=== PATIENT | female | born 1985 | race Hispanic/Latino ===

== ENCOUNTER 2024-12-11 17:56 | Inpatient (IN) | payer OTHER, SELFPAY ==
[2024-12-11 18:34] VITALS: BMI 30.5
[2024-12-11] MEDS ORDERED: Ondansetron PF 4 MG/2 ML Vial IVP PRN (19:10)
[2024-12-11] MEDS ORDERED: hydrALAZINE 20 MG/ML VIAL SLOW IVP PRN (19:10)
[2024-12-11] MEDS ORDERED: Lidocaine 1% (PF) 30 ML VIAL SC PRN (19:10)
[2024-12-11] MEDS ORDERED: Acetaminophen 500 MG TAB PO PRN (19:12)
[2024-12-11] MEDS ORDERED: Ibuprofen 800 MG TAB PO PRN (19:12)
[2024-12-11] MEDS ORDERED: Tranexamic Acid 1,000 MG/10 ML VIAL IVP PRN (19:12)
[2024-12-11] MEDS ORDERED: Diphenoxylate HCl/Atropine Tablet PO PRN ×2 (19:12)
[2024-12-11] MEDS ORDERED: Methylergonovine 0.2 MG/ML VIAL IM PRN (19:12)
[2024-12-11] MEDS ORDERED: Carboprost 250 MCG/ML AMP IM PRN (19:12)
[2024-12-11] MEDS ORDERED: Penicillin G 2.5 MILL.units 2.5 MILL.UNITS in Premix 1 BAG IVPB SCH (19:15)
[2024-12-11] MEDS ORDERED: Oxytocin 30 units/NS 500 ML 500 ML IV SCH ×3 (19:15)
[2024-12-11] MEDS ORDERED: Penicillin G Potassium 5 MILL.UNITS in Sodium Chloride 0.9% 100 ML IVPB SCH (19:15)
[2024-12-11 19:31] LABS: Hematocrit 38.9 % (34.9-44.5); Hemoglobin 13.3 g/dL (12.0-15.5); Mean Corpuscular Hemoglobin 29.4 pg (27.0-33.0); Mean Corpuscular Volume 85.9 fL (81.6-98.3); Platelet Count 208 10x3/uL (150-450); Red Blood Cell (RBC) Count 4.53 10x6/uL (3.90-5.03); White Blood Cell (WBC) Count 8.67 10x3/uL (3.5-10.5)
[2024-12-11 20:19] LABS: Syphilis Antibody Index 0.06 S/CO (<1.00 Non-Reactive)
[2024-12-11 20:21] LABS: Hep B Surf Ag - L&D Non-Reactive S/CO (NonReactive)
== END 2024-12-11 20:50 | disposition home or self-care (01) | DRG 833 ==
LOC: CSHLD 17:56
PROVIDERS: ADMIT Obstetrics & Gynecology; ATTEND Obstetrics & Gynecology
DX: O16.3 Unspecified maternal hypertension, third trimester (principal); O99.283 Endocrine, nutritional and metabolic diseases complicating pregnancy, third trimester; O99.820 Streptococcus B carrier state complicating pregnancy; O24.410 Gestational diabetes mellitus in pregnancy, diet controlled; Z3A.38 38 weeks gestation of pregnancy; Z79.899 Other long term (current) drug therapy; Z79.82 Long term (current) use of aspirin; Z91.013 Allergy to seafood; E21.2 Other hyperparathyroidism
CPT/HCPCS: 85027; 86780; 86850; 86900; 86901; 87340

== ENCOUNTER 2024-12-13 11:47 | Inpatient (IN) | payer MEDICAID, OTHER, SELFPAY ==
[2024-12-13] MEDS ORDERED: Diphenoxylate HCl/Atropine Tablet PO PRN (12:24)
[2024-12-13] MEDS ORDERED: Famotidine/PF 20 mg/2ml Vial SLOW IVP PRN (12:24)
[2024-12-13] MEDS ORDERED: Carboprost 250 MCG/ML AMP IM PRN (12:24)
[2024-12-13] MEDS ORDERED: Ondansetron PF 4 MG/2 ML Vial IVP PRN ×3 (12:24→15:18)
[2024-12-13] MEDS ORDERED: Tranexamic Acid 1,000 MG/10 ML VIAL IVP PRN (12:24)
[2024-12-13] MEDS ORDERED: hydrALAZINE 20 MG/ML VIAL SLOW IVP PRN ×2 (12:24→17:14)
[2024-12-13] MEDS ORDERED: Bicitra 30 ML UDCUP PO PRN (12:24)
[2024-12-13] MEDS ORDERED: Methylergonovine 0.2 MG/ML VIAL IM PRN (12:24)
[2024-12-13] MEDS ORDERED: Oxytocin 30 units/NS 500 ML 500 ML IV SCH (12:30)
[2024-12-13 13:51] VITALS: BMI 30.5
[2024-12-13 14:01] LABS: Hematocrit 39.0 % (34.9-44.5); Hemoglobin 13.0 g/dL (12.0-15.5); Mean Corpuscular Hemoglobin 28.8 pg (27.0-33.0); Mean Corpuscular Volume 86.5 fL (81.6-98.3); Platelet Count 193 10x3/uL (150-450); Red Blood Cell (RBC) Count 4.51 10x6/uL (3.90-5.03); White Blood Cell (WBC) Count 10.31 10x3/uL (3.5-10.5)
[2024-12-13] MEDS ORDERED: Meperidine HCl/PF 25 MG (1 mL) VIAL SLOW IVP PRN (15:17)
[2024-12-13] MEDS ORDERED: Ketorolac Tromethamine 30 MG (1 mL) VIAL IVP PRN (15:18)
[2024-12-13] MEDS ORDERED: diphenhydrAMINE 50 MG/ML VIAL IVP PRN (15:18)
[2024-12-13] MEDS ORDERED: Communication Order-Pharmacy FS SCH (15:30)
[2024-12-13] MEDS ORDERED: Ketorolac Tromethamine 30 MG (1 mL) VIAL IVP SCH (15:30)
[2024-12-13] MEDS ORDERED: Acetaminophen 325 MG TAB PO PRN (17:14)
[2024-12-13] MEDS ORDERED: Bisacodyl 10 MG SUPP PR PRN (17:14)
[2024-12-13] MEDS ORDERED: diphenhydrAMINE 25 MG CAP PO PRN (17:14)
[2024-12-13] MEDS ORDERED: Lanolin Ointment 7 GM TUBE TOP PRN (17:14)
[2024-12-13] MEDS: Ketorolac Tromethamine 30 MG (1 mL) VIAL IVP SCH (17:54)
[2024-12-13] MEDS: Ondansetron PF 4 MG/2 ML Vial ONE (19:32)
[2024-12-13] MEDS: Oxytocin 10 UNITS/ML VIAL ONE ×2 (19:32→19:36)
[2024-12-13] MEDS: Hepatitis B Vaccine 10 MCG/0.5 ML SYR ONE (19:35)
[2024-12-13] MEDS: PHENYLEPHRINE-NS 100 MCG/ML 10 ML SYRINGE ONE (19:35)
[2024-12-13] MEDS: Erythromycin Base 0.5% Oint 1 GM TUBE ONE (19:35)
[2024-12-13] MEDS: Ferrous Sulfate 325 MG TAB PO SCH (23:26)
[2024-12-14 05:29] LABS: Hematocrit 31.0 % (34.9-44.5); Hemoglobin 10.5 g/dL (12.0-15.5); Mean Corpuscular Hemoglobin 29.6 pg (27.0-33.0); Mean Corpuscular Volume 87.3 fL (81.6-98.3); Platelet Count 157 10x3/uL (150-450); Red Blood Cell (RBC) Count 3.55 10x6/uL (3.90-5.03); White Blood Cell (WBC) Count 10.64 10x3/uL (3.5-10.5)
[2024-12-14] MEDS: Boostrix 0.5 ML (Tdap) VIAL (>/=7 yrs of age) IM ONE (05:48)
[2024-12-14] MEDS: HYDROcodone/Acetaminophen 5/325 mg Tablet PO PRN (13:12)
[2024-12-14] MEDS: Ibuprofen 800 MG TAB PO SCH ×2 (14:00→21:15)
[2024-12-15 08:54] VITALS: BP 111/64; TEMP 97.5
== END 2024-12-15 13:55 | disposition home or self-care (01) | DRG 788 ==
LOC: CSHLD 11:47 → CSHPP 18:05
PROVIDERS: ADMIT Obstetrics & Gynecology; ATTEND Emergency Medicine
PROC: 10D00Z1 Extraction of Products of Conception, Low, Open Approach (ICD-10-PCS; principal; 2024-12-13)
DX: O24.429 Gestational diabetes mellitus in childbirth, unspecified control (principal); Z3A.38 38 weeks gestation of pregnancy; Z37.0 Single live birth; O13.4 Gestational [pregnancy-induced] hypertension without significant proteinuria, complicating childbirth; Z3A.36 36 weeks gestation of pregnancy; O99.824 Streptococcus B carrier state complicating childbirth
CPT/HCPCS: 36415; 51702; 82951; 85027; 86850; 86900; 86901; J1885; J2274; J2405; J2590; J3010; J7120